=== PATIENT | male | born 1970 | race Caucasian/White ===

== ENCOUNTER 2022-03-29 00:55 | Emergency (ER) | payer MEDICARE, OTHER, SELFPAY ==
[2022-03-29] VITALS (28 sets, daily range): BP systolic 109–163; BP diastolic 61–87; PULSE 58–68; RESP 10–22; TEMP 36.8; O2SAT 95–100; BMI 27.1
--- NOTE | 2022-03-29 00:59 | ED_ITS ---
HPI - Chest Pain General Chief Complaint: Chest Pain Stated Complaint: Chest pain Time Seen by Provider: 03/29/22 00:59 History of Present Illness HPI narrative: 51-year-old male nonsmoker with history of coronary artery disease with recent myocardial infarction treated at [facility], and [place] presents with family in the chief complaint of a sudden onset retrosternal chest pressure that started about 1-2 hours ago while at rest. He denies any provocation, palliation or radiation of his symptoms. He states it is squeezing and pressure-like in nature and at its most intense was a 7/10 and now is about a 4/10. He states it definitely feels different than when he presented with a myocardial infarction a few weeks ago. He took his routine medications including a baby aspirin but no nitro prior to his arrival. He denies any exertional symptoms. He denies associated symptoms such as dizziness, weakness or lightheadedness. He has no shortness of breath, nausea, vomiting or diaphoresis. He has no fever or chills. Related Data Previous Rx's Medication Instructions Recorded isosorbide mononitrate 30 mg 30 mg PO DAILY #30 tabs 03/29/22 tablet,extended release 24 hr Review of Systems Review of Systems Narrative: GENERAL: Denies chills, fatigue, malaise, fever, sweats. HEENT: Denies sinus pain, ear pain, sore throat, difficulty swallowing, dizziness. RESPIRATORY: Denies dyspnea, cough, wheezing, hemoptysis, sputum. CARDIOVASCULAR: See HPI GASTROINTESTINAL: Denies nausea, vomiting, abdominal pain, diarrhea, constipation, melena. : Denies dysuria, frequency, incontinence, hematuria, urinary retention. MUSCULOSKELETAL: denies weakness, joint pain, or bony pain SKIN: Denies rash, skin lesions, or other NEUROLOGIC: Denies weakness, headache, numbness, change in speech, confusion, seizures, incoordination. PSYCHIATRIC: No concerning psychosocial issues. 12 point review of systems is negative except for those stated above Patient History Social History Smoking Status: Never smoker Exam Narrative Exam Narrative: GENERAL: []51 year old patient appears stated age. Well-developed patient, in mild distress. HEAD: Atraumatic. Normocephalic. EYES: Pupils equal round and reactive. Extraocular motions intact. No scleral icterus. No injection or drainage. ENT: Nose without bleeding, purulent drainage. Throat without erythema, tonsillar hypertrophy or exudate. Airway patent. NECK: Trachea midline. Non tender CARDIOVASCULAR: Regular rate and rhythm without murmurs, gallops, or rubs. RESPIRATORY: Clear to auscultation. Breath sounds equal bilaterally. No wheezes, rales, or rhonchi. GASTROINTESTINAL: Abdomen soft, non-tender, nondistended. EXTREMITIES: No edema or joint tenderness. BACK: Nontender without deformity or crepitance. No flank tenderness. NEURO: AOx3. SKIN: No rash or erythema of visible areas Initial Vital Signs Initial Vital Signs: Vital Signs Pulse Rate 68 03/29/22 01:08 Respiratory Rate 21 03/29/22 01:08 Pulse Oximetry 100 03/29/22 01:08 Scores HEART Score Heart Score history: Slightly Suspicious Heart Score EKG: Normal Heart Score Age: 45-64 years old Heart Score risk factors: > 3 risk factors or hx of atherosclerotic disease Heart Score troponin: < or = to normal limit Heart Score Total: 3 Course Orders Ordered: Discontinued Medications Aspirin (Aspirin 81 Mg Chew Tab) 324 mg PO NOW ONE Stop: 03/29/22 01:15 Last Admin: 03/29/22 01:20 Dose: 324 mg Documented By: LUCAS Sodium Chloride (Normal Saline 0.9%) 1,000 mls @ 150 mls/hr IV CONT MARKIE Last Infusion: 03/29/22 03:07 Dose: 0 mls/hr Documented By: Admin: 03/29/22 01:21 Dose: 150 mls/hr Documented By: LUCAS Nitroglycerin (Nitroglycerin 0.4 Mg Sl Tab) 0.4 mg SL [id number] PRN PRN Reason: Chest Pain Last Admin: 03/29/22 01:20 Dose: 0.4 mg Documented By: LUCAS Reevaluation(s) Reevaluation #1: minimal change after NG Reevaluation #2: 0215 - pain free 0320 - patient pain free Consultations Consultation #1: Discussed with on-call Cardiology at [facility]. We have discussed the patient's history and physical exam as well as labs and EKGs. He was able to access patient's records and after this discussion we sure the opinion that he is low risk at this time and should be discharged on a long-acting nitrate, he recommends Imdur 30 mg and calling the office on Wednesday, cardiology stating t hat he was sent a message to the office to get the patient seen quickly Vital Signs Vital signs: Vital Signs - 8 hr 03/29/22 01:12 03/29/22 01:08 03/29/22 01:25 Temperature 98.2 F Pulse Rate 66 68 Respiratory Rate 18 21 Blood Pressure 163/87 H 123/70 Pulse Oximetry 100 100 Oxygen Delivery Method Room Air 03/29/22 01:25 Temperature Pulse Rate 68 Respiratory Rate 13 Blood Pressure Pulse Oximetry 95 Oxygen Delivery Method MDM - Chest Pain Lab Data Result diagrams: 03/29/22 01:08 03/29/22 01:08 Labs: Lab Results 03/29/22 03/29/22 03/29/22 Range/Units 01:08 01:08 01:08 WBC 12.1 H (4.5-11.0) X10^3/uL RBC 4.35 L (4.5-5.9) X10^6/uL Hgb 12.5 L (13.5-17.5) g/dL Hct 37.8 L (41-53) % MCV 86.8 (80-100) fL MCH 28.7 (26-34) PG MCHC 33.1 (30-36) % RDW 13.7 (11.6-14.8) % Plt Count 431 H (150-400) X10^3/uL Neut % (Auto) 59.5 (50-75) % Lymph % (Auto) 21.3 L (25-40) % [place] % (Auto) 11.9 (3-14) % Eos % (Auto) 6.5 H (2-4) % Baso % (Auto) 0.8 (0-2) % Neut # (Auto) 7200 H (9184-7021) /uL Lymph # (Auto) 2600 (3383-9431) /uL [place] # (Auto) 1400 H (0-900) /uL Eos # (Auto) 800 H (0-450) /uL Baso # (Auto) 100 (0-100) /uL D-Dimer < 215 (<500) ng/ml Sodium (137-145) mmol/L Potassium (3.4-5.1) mmol/L Chloride (98-107) mmol/L Carbon Dioxide (22-32) mmol/L BUN (9-20) mg/dL Creatinine (0.66-1.25) mg/dL Estimated GFR (>60) mL/min BUN/Creatinine Ratio (6-22) Glucose (70-100) mg/dL Calcium (8.4-10.2) mg/dL Total Bilirubin (0.2-1.3) mg/dL AST (17-59) IU/L ALT (<50) IU/L Alkaline Phosphatase (38-126) U/L Total Creatine Kinase (55-170) U/L CK-MB (CK-2) (<2.37) ng/mL CK-MB (CK-2) Rel Index (1.5-5.0) % Troponin I (0.01-0.034) ng/mL NT-Pro-B Natriuret Pep (<125) pg/mL Total Protein (6.3-8.2) g/dL Albumin (3.5-5.0) g/dL Globulin (1.7-4.1) g/dL Albumin/Globulin Ratio (1.0-2.8) Lipase (23-300) U/L Procalcitonin 0.05 (<0.5) ng/mL SARS-CoV-2 (PCR) (Negative) 03/29/22 03/29/22 03/29/22 Range/Units 01:08 01:08 02:59 WBC (4.5-11.0) X10^3/uL RBC (4.5-5.9) X10^6/uL Hgb (13.5-17.5) g/dL Hct (41-53) % MCV (80-100) fL MCH (26-34) PG MCHC (30-36) % RDW (11.6-14.8) % Plt Count (150-400) X10^3/uL Neut % (Auto) (50-75) % Lymph % (Auto) (25-40) % [place] % (Auto) (3-14) % Eos % (Auto) (2-4) % Baso % (Auto) (0-2) % Neut # (Auto) (1649-6842) /uL Lymph # (Auto) (5373-9721) /uL [place] # (Auto) (0-900) /uL Eos # (Auto) (0-450) /uL Baso # (Auto) (0-100) /uL D-Dimer (<500) ng/ml Sodium 140 (137-145) mmol/L Potassium 3.8 (3.4-5.1) mmol/L Chloride 103 (98-107) mmol/L Carbon Dioxide 28 (22-32) mmol/L BUN 15 (9-20) mg/dL Creatinine 0.81 (0.66-1.25) mg/dL Estimated GFR > 60 (>60) mL/min BUN/Creatinine Ratio 18.5 (6-22) Glucose 92 (70-100) mg/dL Calcium 8.7 (8.4-10.2) mg/dL Total Bilirubin 0.3 (0.2-1.3) mg/dL AST 32 (17-59) IU/L ALT 36 (<50) IU/L Alkaline Phosphatase 83 (38-126) U/L Total Creatine Kinase 139 118 (55-170) U/L CK-MB (CK-2) 0.68 0.66 (<2.37) ng/mL CK-MB (CK-2) Rel Index 0.5 L 0.6 L (1.5-5.0) % Troponin I < 0.012 < 0.012 (0.01-0.034) ng/mL NT-Pro-B Natriuret Pep 173 H (<125) pg/mL Total Protein 7.3 (6.3-8.2) g/dL Albumin 4.4 (3.5-5.0) g/dL Globulin 2.9 (1.7-4.1) g/dL Albumin/Globulin Ratio 1.5 (1.0-2.8) Lipase 136 (23-300) U/L Procalcitonin (<0.5) ng/mL SARS-CoV-2 (PCR) Negative (Negative) Imaging Data Chest x-ray: Radiologist's Impression: [address] [address] XRay Report Signed Patient: Martin Juan MR#: [id number] : 1970 Acct:[id number] Age/Sex: 51 / M Date of Service: 03/29/22 Loc: ED Accession Number: [id number] ?? Procedure: XR chest 1V Ordering Provider: Rodolfo Alston D.O. PROCEDURE:? XR CHEST 1V ? INDICATIONS:? chest pain ? TECHNIQUE:? One view of the chest was acquired.? ? COMPARISON:? None. ? FINDINGS:? ? Surgical changes and devices:? None.? ? Lungs and pleura:? Lungs are clear.? No pleural effusions or pneumothorax.? ? Mediastinum:? Mediastinal contours appear normal.? Heart size is normal.? ? Bones and chest wall:? No suspicious bony lesions.? Overlying soft tissues appear unremarkable.? ? IMPRESSION:? Normal for age, source of current chest pain symptoms is not seen. ? ? Dictated by: Aryan Hope M.D. on 03/29/2022 at 1:33 ? ? Approved by: Aryan Hope M.D. on 03/29/2022 at 1:34 ? ECG Data Interpretation: [0112] EKG is normal sinus rhythm rate [64 ] and free of any signs of ischemia or ectopy. No ST segmental elevation or depression. T wave inversions in III [0149] EKG is normal sinus rhythm rate [60 ] and free of any signs of ischemia or ectopy. No ST segmental elevation or depression. T wave inversions in III Discharge Plan Departure Patient Disposition: Home Clinical Impression: Chest pain Instructions: DI for Chest Pain Activity Restrictions/Additional Instructions: *You have been diagnosed with [chest pain. As we discussed your history and physical exam as well as labs and repeat EKGs are very reassuring. I have di scussed your presentation with the division merchandise manager on-call at [facility] and we sure the opinion that your appropriate for discharge with close follow-up with their clinic] *What to do: *Please continue to take your regular medications as directed. [ x] New medication prescriptions sent to your pharmacy: [[facility] in [place] ] [ ] New medication written as a paper prescription [ ] No new medications given *Please follow up with your primary division merchandise manager at [facility], call Wednesday for an appointment. Let them know you were seen in the Emergency Department and that we ask that you be seen in follow up. *Return to Emergency Department if you should have any new, worsening or concerning symptoms, such as [fever greater than 101 F, shaking chills, worsening pain, persistent vomiting or other bothersome symptoms] Prescriptions: New isosorbide mononitrate 30 mg tablet extended release 24 hr 30 mg PO DAILY Qty: 30 0RF Visit Report Forms: Patient Portal/API
--- NOTE | 2022-03-29 01:00 | DI.RAD.S_ITS ---
PROCEDURE: XR CHEST 1V INDICATIONS: chest pain TECHNIQUE: One view of the chest was acquired. COMPARISON: None. FINDINGS: Surgical changes and devices: None. Lungs and pleura: Lungs are clear. No pleural effusions or pneumothorax. Mediastinum: Mediastinal contours appear normal. Heart size is normal. Bones and chest wall: No suspicious bony lesions. Overlying soft tissues appear unremarkable. IMPRESSION: Normal for age, source of current chest pain symptoms is not seen. Dictated by: Aryan Hope M.D. on 03/29/2022 at 1:33 Approved by: Aryan Hope M.D. on 03/29/2022 at 1:34
[2022-03-29] MEDS: NITROGLYCERIN 0.4 MG SL TAB SL (01:20)
[2022-03-29] MEDS: ASPIRIN 81 MG CHEW TAB 324 MG PO (01:20)
[2022-03-29 01:21] LABS: Add Manual Diff / Slide Review NO; Basophils Absolute Auto 100 /uL (0-100); Basophils Percent Auto 0.8 % (0-2); Eosinophils Absolute Auto 800 /uL (0-450); Eosinophils Percent Auto 6.5 % (2-4); Hematocrit 37.8 % (41-53); Hemoglobin 12.5 g/dL (13.5-17.5); Lymphocytes Absolute Auto 2600 /uL (1100-4500); Lymphocytes Percent Auto 21.3 % (25-40); Mean Corpuscular HGB Conc 33.1 % (30-36); Mean Corpuscular Hemoglobin 28.7 PG (26-34); Mean Corpuscular Volume 86.8 fL (80-100); Monocytes Absolute Auto 1400 /uL (0-900); Monocytes Percent Auto 11.9 % (3-14); Neutrophils Absolute Auto 7200 /uL (1500-7000); Neutrophils Percent Auto 59.5 % (50-75); Platelet Count 431 X10^3/uL (150-400); Red Blood Cell Count 4.35 X10^6/uL (4.5-5.9); Red Cell Distribution Width 13.7 % (11.6-14.8); White Blood Cell Count 12.1 X10^3/uL (4.5-11.0)
[2022-03-29] MEDS: SODIUM CHLORIDE 0.9% 1,000 ML 150 ML IV (01:21)
[2022-03-29 01:27] LABS: D Dimer < 215 ng/ml (<500)
[2022-03-29 01:29] LABS: Alanine Aminotransferase 36 IU/L (<50); Albumin 4.4 g/dL (3.5-5.0); Albumin Globulin Ratio 1.5 (1.0-2.8); Alkaline Phosphatase 83 U/L (38-126); Aspartate Aminotransferase 32 IU/L (17-59); BUN Creatinine Ratio 18.5 (6-22); Bilirubin Total 0.3 mg/dL (0.2-1.3); Blood Urea Nitrogen 15 mg/dL (9-20); COVID19 -Nasal RAPID Negative (Negative); Calcium 8.7 mg/dL (8.4-10.2); Carbon Dioxide 28 mmol/L (22-32); Chloride 103 mmol/L (98-107); Creatine Kinase 139 U/L (55-170); Estimated Glomerular Filt Rate > 60 mL/min (>60); Globulin 2.9 g/dL (1.7-4.1); Glucose 92 mg/dL (70-100); HEMOLYSIS < 15 (0-50); Lipase 136 U/L (23-300); Potassium 3.8 mmol/L (3.4-5.1); Sodium 140 mmol/L (137-145); Total Protein 7.3 g/dL (6.3-8.2)
[2022-03-29 01:40] LABS: NT-proBNP (BNP-Adult 18+) 173 pg/mL (<125); Troponin I < 0.012 ng/mL (0.01-0.034)
[2022-03-29 01:44] LABS: CKMB % Relative Index 0.5 % (1.5-5.0); Creatine Kinase MB 0.68 ng/mL (<2.37)
[2022-03-29 01:45] LABS: Procalcitonin 0.05 ng/mL (<0.5)
[2022-03-29 03:17] LABS: Creatine Kinase 118 U/L (55-170)
[2022-03-29 03:30] LABS: Troponin I < 0.012 ng/mL (0.01-0.034)
[2022-03-29 03:33] LABS: CKMB % Relative Index 0.6 % (1.5-5.0); Creatine Kinase MB 0.66 ng/mL (<2.37)
== END 2022-03-29 04:54 | disposition home or self-care (01) ==
PROVIDERS: Emergency Provider Emergency Medicine
DX: R07.9 Chest pain, unspecified (principal); I25.2 Old myocardial infarction; Z20.822 Contact with and (suspected) exposure to COVID-19
CPT/HCPCS: 36415; 71045; 80053; 82550; 82553; 83690; 83880; 84145; 84484; 85025; 85379; 87635; 93005; 93010; 99284; C9803